=== PATIENT | male | born 1990 | race African-American/Black ===

== ENCOUNTER 2018-06-29 20:49 | Emergency (ER) | payer OTHER ==
[~2018-06-29] VITALS: Ht 162.6 cm; Wt 78.5 kg
[2018-06-29 22:24] VITALS: BP 140/81
== END 2018-06-29 22:24 | disposition home or self-care (01) ==
LOC: ER 20:49
DX: S01.112A Laceration without foreign body of left eyelid and periocular area, initial encounter (principal); W54.8XXA Other contact with dog, initial encounter; Y93.89 Activity, other specified; Y92.89 Other specified places as the place of occurrence of the external cause; Y99.8 Other external cause status